=== PATIENT | female | born 1990 | race Caucasian/White ===

== ENCOUNTER → 2016-10-18 | Outpatient (CLI) | payer BC ==
[~2016-10-18] MED LIST: LVQ750 PO; NCDT21 TD; PRD20 PO
--- NOTE | 2016-10-18 09:35 | DIAGNOSTIC IMAGING REPORT ---
THORACIC SPINE 3 VIEWS CLINICAL HISTORY: Thoracic back pain. FINDINGS: AP, lateral, and swimmer's views of the thoracic spine are correlated with CT scan of the chest dated 01/22/2016. The skeletal structures are well mineralized. Vertebral body height and alignment are maintained throughout the thoracic spine. There is no radiographic evidence of fracture or malalignment. Intervertebral disc spaces are preserved. The transverse processes and pedicles are grossly intact as seen on the frontal view. The imaged lung parenchyma appears clear. IMPRESSION: Unremarkable radiographic assessment of the thoracic spine. Electronically signed by: Tej Vasquez M.D. 10/18/2016 9:34 AM Dictated Date/Time: 10/18/2016 9:33 AM
[2016-10-18 11:05] LABS: ESTIMATED AVERAGE GLUCOSE 103 mg/dl; HA1C FLAG Normal (Normal)
[2016-10-18 15:26] LABS: LYME DISEASE AB IGG NEG (NEG)
[2016-10-18 15:28] LABS: LYME DISEASE AB IGM NEG (NEG)
[2016-10-19 16:27] LABS: ALBUMIN 4.5 G/DL (3.8-4.8); COLLECTION SAMPLE Venous; GAMMA GLOBULIN 0.8 G/DL (0.8-1.7); IMMUNOFIXATION IGA SERUM 105 MG/DL (81-463); IMMUNOFIXATION IGG SERUM 790 MG/DL (694-1618); IMMUNOFIXATION IGM SERUM 108 MG/DL (48-271); LEAD BLOOD <1 mcg/dL (<5); TOTAL PROTEIN 7.1 G/DL (6.2-8.3)
== END | disposition home or self-care (01) ==
LOC: C.RAD1850 08:58
PROVIDERS: ATTEND Nurse Practitioner
DX: G60.9 Hereditary and idiopathic neuropathy, unspecified (principal); M54.9 Dorsalgia, unspecified

== ENCOUNTER 2019-05-30 20:58 | Inpatient (IN) ==
[2019-05-30] MEDS ORDERED: OXYTOCIN 30 UNITS/500 ML BAG IV PRN (21:11)
--- NOTE | 2019-05-30 21:14 | Labor Progress Brief Note ---
Date of Service May 30, 2019 Subjective Patient arrives with c/o contractions Q2-3min. No LOF, no VB, Good FM. Assessment & Plan (1) Normal labor and delivery: Admit, IV hydrate, patient hoping for epidural before delivery. Anticipate . Physical Exam Physical Exam: /-1 Bulging bag Vertex palpable FHT Cat 1 Nicut Q2-3 Results & Data Vital Signs (Past 12 Hours) Vital Signs Pulse BP 05/30/19 21:07 90 129/81 Coding Level of Care Code None Diagnoses Normal labor and delivery O80
[2019-05-30] MEDS: LACTATED RINGER'S 1,000 ML IV PRN (21:20)
[2019-05-30] MEDS ORDERED: ePHEDrine sulfate 50 MG/ML AMP ONE (21:30)
[2019-05-30] MEDS ORDERED: fentaNYL citrate 100 MCG/2 ML VIAL ONE (21:30)
[2019-05-30] MEDS ORDERED: NALOXONE HCL 1 MG in SODIUM CHLORIDE 0.9% 1000ML 1,000 ML IV PRN (21:31)
[2019-05-30] MEDS ORDERED: ONDANSETRON INJ 2 MG/ML 2 ML VIAL IV PRN (21:31)
[2019-05-30] MEDS ORDERED: DiphenhydrAMINE HCL 50 MG/ML VIAL IV PRN (21:31)
[2019-05-30] MEDS ORDERED: fentaNYL 2MCG/ML ROPIV 1.25MG/ML 100 ML BAG EPI PRN (21:31)
[2019-05-30] MEDS ORDERED: ePHEDrine sulfate 50 MG/ML AMP IV PRN (21:31)
[2019-05-30] MEDS ORDERED: NALBUPHINE HCL INJ 10 MG/ML AMP IV PRN (21:31)
[2019-05-30] MEDS ORDERED: BUPIVACAINE 0.25% 30 ML VIAL ONE (21:31)
[2019-05-30] MEDS ORDERED: NALOXONE HCL 0.4 MG/1 ML VIAL/CARP IV PRN (21:31)
[2019-05-30] MEDS ORDERED: fentaNYL 2MCG/ML ROPIV 1.25MG/ML 100 ML BAG EPI ONE (21:31)
[2019-05-30 21:34] LABS: Hematocrit (blood only) 39.2 % (37-47); Hemoglobin 13.9 g/dL (12.0-16.0); Mean Corpuscular Hemoglobin 33.3 pg (25-34); Mean Corpuscular Volume 93.8 fL (80-100); Mean Platelet Volume 12.4 fL (7.4-10.4); Platelet Count 151 K/uL (130-400); RDW Coefficient of Variation 13.9 % (11.5-14.5); RDW Standard Deviation 47.5 fL (36.4-46.3); Red Blood Count 4.18 M/uL (4.2-5.4); White Blood Count 18.48 K/uL (4.8-10.8)
--- NOTE | 2019-05-30 21:35 | Anesthesiology Consultation ---
Date of Service May 30, 2019 Assessment & Plan (1) Encounter for pre-operative examination: Chart Review Chart Review: Patient NOT seen in Pre Admission Testing and Acceptable Risk for Labor Epidural Consults Requested none History Height/Weight Height: 5 ft Weight: 66.224 kg Allergies Allergy/AdvReac Type Severity Reaction Status Date / Time No Known Drug Allergies Allergy Verified 05/29/19 11:27 Medications Home Medications Medication Instructions Recorded Confirmed Last Taken PNV cmb#95-ferrous fumarate-FA 1 tab PO DAILY 08/29/18 05/29/19 08/29/18 [] acetone (urine) test #50 04/19/19 05/29/19 Unknown blood sugar diagnostic #120 ea 04/19/19 05/29/19 Unknown blood-glucose meter #1 ea 04/19/19 05/29/19 Unknown lancets 33 gauge #120 04/19/19 05/29/19 Unknown pen needle, diabetic 32 gauge x #100 04/23/19 05/29/19 Unknown " insulin NPH isoph U-100 human 15 units SQ .qHS 05/30/19 05/30/19 05/29/19 22:00 [Humulin N NPH Insulin KwikPen] Active Medications Generic Name Dose Route Start Last Admin Trade Name Freq PRN Reason Stop Dose Admin Lactated Ringer's 1,000 mls @ 125 mls/hr 05/30/19 21:11 05/30/19 21:20 Lr IV 06/01/19 21:10 999 mls/hr .Q8H PRN Administration L&D Protocol Protocol Past Medical History Medical History History of asthma History of chlamydia History of genital warts History of labor History of spontaneous No pertinent past medical history with history of miscarriage (Inactive) Exercise / Class Metabolic Activity II 4-5 Yardwork/Stairs/Walk up hill Past Family History Family History Grandmother (Maternal) Dyslipidemia Hypertension Diabetes Mother Diabetes Anemia Past Surgical History Surgical History History of tonsillectomy and adenoidectomy S/P wisdom tooth extraction Past Anesthesia History No Hx of Anesthesia Complications and No Family Hx of Anesthesia Complications History of PONV No Hx of PONV and No Hx of Motion Sickness Social History Smoking Status: Current every day smoker tobacco type: cigarettes Smoking cigarettes per day: 20 Do You Dip or Chew Tobacco: No Hx Alcohol Use: No Hx Substance Use: No Physical Exam Vital Signs Last Vital Signs Temp 37 C 05/30/19 21:07 Pulse 84 05/30/19 21:47 Resp 20 05/30/19 21:07 BP 134/74 05/30/19 21:47 Pulse Ox 100 05/30/19 21:47 Testing Laboratory Results 05/30/19 21:24
[2019-05-30 21:59] LABS: Mean Corpuscular Hgb Conc 35.5 g/dL (32-36)
[2019-05-31] MEDS: LACTATED RINGER'S 1,000 ML IV PRN ×2 (01:09→07:24)
[2019-05-31] MEDS ORDERED: OXYTOCIN 30 UNITS/500 ML BAG IV PRN ×2 (07:12→09:10)
--- NOTE | 2019-05-31 07:12 | Labor Progress Brief Note ---
Date of Service May 31, 2019 Subjective Comfortable with epidural Assessment & Plan (1) Normal labor and delivery: AROM now completed as labor did not spontaneously progress overnight. Pitocin to be added as well, pt agreeable. (2) Insulin controlled gestational diabetes mellitus (GDM) during , antepartum: Glucose on admit 110, check this AM. Physical Exam Physical Exam: Bulging bag fills vagina. When touched, ruptures for copious clear fluid. Cervix afterwards is 9cm/100/0. FHT Cat 1, Ctx Q2min. Results & Data Vital Signs (Past 12 Hours) Vital Signs Temp Pulse Resp BP Pulse Ox 05/31/19 07:07 108 H 99 05/31/19 07:02 83 97 05/31/19 07:01 78 119/58 L 05/31/19 07:00 20 05/31/19 06:57 77 96 05/31/19 06:52 74 98 05/31/19 06:50 73 91 05/31/19 06:47 78 98 05/31/19 06:45 91 H 94 05/31/19 06:44 80 118/67 05/31/19 06:42 93 H 98 05/31/19 06:37 93 H 99 05/31/19 06:32 91 H 98 05/31/19 06:31 85 112/63 05/31/19 06:30 20 05/31/19 06:27 81 96 05/31/19 06:22 69 97 05/31/19 06:17 77 97 05/31/19 06:15 69 111/70 05/31/19 06:12 83 99 05/31/19 06:07 82 97 05/31/19 06:02 98.4 F 85 98 05/31/19 06:00 104 H 18 118/73 05/31/19 05:57 90 97 05/31/19 05:52 80 97 05/31/19 05:47 84 96 05/31/19 05:45 85 125/77 05/31/19 05:42 83 97 05/31/19 05:37 95 H 97 05/31/19 05:32 99 H 97 05/31/19 05:31 81 126/76 05/31/19 05:30 20 05/31/19 05:27 77 96 05/31/19 05:22 88 97 05/31/19 05:17 92 H 96 05/31/19 05:15 85 128/76 05/31/19 05:12 80 97 05/31/19 05:07 78 97 05/31/19 05:04 92 H 78 L 05/31/19 05:02 82 97 05/31/19 05:01 82 120/74 05/31/19 05:00 20 05/31/19 04:57 82 97 05/31/19 04:52 76 96 05/31/19 04:47 89 96 05/31/19 04:44 106 H 123/87 05/31/19 04:42 82 96 05/31/19 04:37 84 96 05/31/19 04:32 78 96 05/31/19 04:30 75 18 125/77 05/31/19 04:27 84 96 05/31/19 04:22 81 96 05/31/19 04:17 78 96 05/31/19 04:14 91 H 117/77 05/31/19 04:12 76 96 05/31/19 04:07 92 H 97 05/31/19 04:02 81 97 05/31/19 04:01 85 118/75 05/31/19 04:00 98.1 F 20 05/31/19 03:57 116 H 97 05/31/19 03:52 69 97 05/31/19 03:47 88 97 05/31/19 03:45 75 117/63 05/31/19 03:42 79 97 05/31/19 03:37 88 96 05/31/19 03:32 65 97 05/31/19 03:31 68 108/55 L 05/31/19 03:30 20 05/31/19 03:27 67 97 05/31/19 03:22 79 98 05/31/19 03:17 78 98 05/31/19 03:16 68 117/63 05/31/19 03:12 76 97 05/31/19 03:07 75 97 05/31/19 03:02 69 96 05/31/19 03:00 88 116/62 05/31/19 02:57 75 98 05/31/19 02:52 68 97 05/31/19 02:47 67 97 05/31/19 02:46 67 112/62 05/31/19 02:42 96 H 96 05/31/19 02:37 81 94 05/31/19 02:32 63 97 05/31/19 02:30 98.1 F 72 20 117/65 05/31/19 02:27 69 97 05/31/19 02:22 73 98 05/31/19 02:17 78 97 05/31/19 02:15 75 119/74 05/31/19 02:12 80 98 05/31/19 02:07 79 97 05/31/19 02:02 82 126/70 98 05/31/19 02:00 20 05/31/19 01:57 75 98 05/31/19 01:52 77 97 05/31/19 01:47 75 97 05/31/19 01:46 70 117/74 05/31/19 01:42 73 97 05/31/19 01:37 76 97 05/31/19 01:32 72 97 05/31/19 01:31 72 112/69 05/31/19 01:30 18 05/31/19 01:27 73 97 05/31/19 01:22 78 97 05/31/19 01:17 80 97 05/31/19 01:16 85 119/72 05/31/19 01:12 74 97 05/31/19 01:07 80 97 05/31/19 01:02 75 97 05/31/19 01:01 76 119/73 05/31/19 01:00 20 05/31/19 00:57 93 H 98 05/31/19 00:52 70 97 05/31/19 00:47 89 98 05/31/19 00:46 77 122/73 05/31/19 00:42 73 97 05/31/19 00:37 70 98 05/31/19 00:32 80 98 05/31/19 00:31 69 126/69 05/31/19 00:30 20 05/31/19 00:27 106 H 98 05/31/19 00:22 71 97 05/31/19 00:17 74 115/71 97 05/31/19 00:12 86 98 05/31/19 00:07 76 98 05/31/19 00:02 89 96 05/31/19 00:00 98.6 F 78 20 130/76 05/30/19 23:57 84 98 05/30/19 23:52 72 97 05/30/19 23:47 75 98 05/30/19 23:46 73 122/66 05/30/19 23:42 84 98 05/30/19 23:37 78 98 05/30/19 23:32 74 98 05/30/19 23:30 75 18 114/71 05/30/19 23:27 80 97 05/30/19 23:22 88 97 05/30/19 23:17 70 98 05/30/19 23:15 68 114/69 05/30/19 23:12 85 98 05/30/19 23:07 84 98 05/30/19 23:03 98.6 F 05/30/19 23:02 82 98 05/30/19 23:01 73 120/72 05/30/19 23:00 20 05/30/19 22:57 85 98 05/30/19 22:52 76 98 05/30/19 22:47 87 98 05/30/19 22:45 75 125/76 05/30/19 22:42 78 99 05/30/19 22:37 100 H 99 05/30/19 22:32 92 H 98 05/30/19 22:31 71 122/73 05/30/19 22:30 18 05/30/19 22:27 79 100 05/30/19 22:22 88 99 05/30/19 22:17 101 H 99 05/30/19 22:15 20 05/30/19 22:14 89 122/62 05/30/19 22:12 89 99 05/30/19 22:11 84 133/71 05/30/19 22:10 20 05/30/19 22:07 97 H 98 05/30/19 22:06 98 H 132/84 05/30/19 22:05 18 05/30/19 22:02 96 H 98 05/30/19 22:01 85 124/63 05/30/19 22:00 92 H 20 128/63 05/30/19 21:57 92 H 143/80 H 99 05/30/19 21:55 82 20 123/65 05/30/19 21:53 79 122/64 05/30/19 21:52 86 100 05/30/19 21:51 80 125/68 05/30/19 21:50 20 05/30/19 21:49 85 136/78 05/30/19 21:47 84 134/74 100 05/30/19 21:45 20 05/30/19 21:42 95 H 99 05/30/19 21:37 109 H 99 05/30/19 21:07 98.6 F 90 20 129/81 Coding Level of Care Code None Diagnoses Normal labor and delivery O80 Insulin controlled gestational diabetes mellitus (GDM) during , antepartum O24.414
--- NOTE | 2019-05-31 08:42 | Labor Progress Brief Note ---
Date of Service May 31, 2019 Subjective pt pushing Assessment & Plan (1) Supervision of normal intrauterine in multigravida: (2) Insulin controlled gestational diabetes mellitus (GDM) during , antepartum: will cont 2nd stage. fhts reassuring. couple aware I am assuming care. Physical Exam Constitutional: WD/WN, vitals as above Genitourinary: OB Exam Monitor Tracing: + external FHT monitor used (145 mod variability), + external uterine monitor used (q1-1.5 min), + category I and + normal FHT variability Results & Data Vital Signs (Past 12 Hours) Vital Signs Temp Pulse Resp BP Pulse Ox 05/31/19 08:32 124 H 99 05/31/19 08:30 131 H 133/69 05/31/19 08:27 125 H 99 05/31/19 08:22 116 H 97 05/31/19 08:17 108 H 97 05/31/19 08:15 117 H 134/88 05/31/19 08:12 112 H 98 05/31/19 08:07 100 H 98 05/31/19 08:02 91 H 97 05/31/19 08:01 82 138/83 05/31/19 07:57 90 98 05/31/19 07:52 84 97 05/31/19 07:47 92 H 98 05/31/19 07:45 104 H 135/78 05/31/19 07:42 97 H 95 05/31/19 07:37 88 97 05/31/19 07:32 86 98 05/31/19 07:31 82 132/82 05/31/19 07:27 87 98 05/31/19 07:22 89 98 05/31/19 07:17 85 97 05/31/19 07:15 71 134/68 05/31/19 07:12 76 99 05/31/19 07:07 108 H 99 05/31/19 07:02 83 97 05/31/19 07:01 98.4 F 78 21 119/58 L 05/31/19 07:00 20 05/31/19 06:57 77 96 05/31/19 06:52 74 98 05/31/19 06:50 73 91 05/31/19 06:47 78 98 05/31/19 06:45 91 H 94 05/31/19 06:44 80 118/67 05/31/19 06:42 93 H 98 05/31/19 06:37 93 H 99 05/31/19 06:32 91 H 98 05/31/19 06:31 85 112/63 05/31/19 06:30 20 05/31/19 06:27 81 96 05/31/19 06:22 69 97 05/31/19 06:17 77 97 05/31/19 06:15 69 111/70 05/31/19 06:12 83 99 05/31/19 06:07 82 97 05/31/19 06:02 98.4 F 85 98 05/31/19 06:00 104 H 18 118/73 05/31/19 05:57 90 97 05/31/19 05:52 80 97 05/31/19 05:47 84 96 05/31/19 05:45 85 125/77 05/31/19 05:42 83 97 05/31/19 05:37 95 H 97 05/31/19 05:32 99 H 97 05/31/19 05:31 81 126/76 05/31/19 05:30 20 05/31/19 05:27 77 96 05/31/19 05:22 88 97 05/31/19 05:17 92 H 96 05/31/19 05:15 85 128/76 05/31/19 05:12 80 97 05/31/19 05:07 78 97 05/31/19 05:04 92 H 78 L 05/31/19 05:02 82 97 05/31/19 05:01 82 120/74 05/31/19 05:00 20 05/31/19 04:57 82 97 05/31/19 04:52 76 96 05/31/19 04:47 89 96 05/31/19 04:44 106 H 123/87 05/31/19 04:42 82 96 05/31/19 04:37 84 96 05/31/19 04:32 78 96 05/31/19 04:30 75 18 125/77 05/31/19 04:27 84 96 05/31/19 04:22 81 96 05/31/19 04:17 78 96 05/31/19 04:14 91 H 117/77 05/31/19 04:12 76 96 05/31/19 04:07 92 H 97 05/31/19 04:02 81 97 02/06/20 04:01 85 118/75 05/31/19 04:00 98.1 F 20 05/31/19 03:57 116 H 97 05/31/19 03:52 69 97 05/31/19 03:47 88 97 05/31/19 03:45 75 117/63 05/31/19 03:42 79 97 05/31/19 03:37 88 96 05/31/19 03:32 65 97 05/31/19 03:31 68 108/55 L 05/31/19 03:30 20 05/31/19 03:27 67 97 05/31/19 03:22 79 98 05/31/19 03:17 78 98 05/31/19 03:16 68 117/63 05/31/19 03:12 76 97 05/31/19 03:07 75 97 05/31/19 03:02 69 96 05/31/19 03:01 20 05/31/19 03:00 88 116/62 05/31/19 02:57 75 98 05/31/19 02:52 68 97 05/31/19 02:47 67 97 05/31/19 02:46 67 112/62 05/31/19 02:42 96 H 96 05/31/19 02:37 81 94 05/31/19 02:32 63 97 05/31/19 02:30 98.1 F 72 20 117/65 05/31/19 02:27 69 97 05/31/19 02:22 73 98 05/31/19 02:17 78 97 05/31/19 02:15 75 119/74 05/31/19 02:12 80 98 05/31/19 02:07 79 97 05/31/19 02:02 82 126/70 98 05/31/19 02:00 20 05/31/19 01:57 75 98 05/31/19 01:52 77 97 05/31/19 01:47 75 97 05/31/19 01:46 70 117/74 05/31/19 01:42 73 97 05/31/19 01:37 76 97 05/31/19 01:32 72 97 05/31/19 01:31 72 112/69 05/31/19 01:30 18 05/31/19 01:27 73 97 05/31/19 01:22 78 97 02/06/20 01:17 80 97 05/31/19 01:16 85 119/72 05/31/19 01:12 74 97 05/31/19 01:07 80 97 05/31/19 01:02 75 97 05/31/19 01:01 76 119/73 05/31/19 01:00 20 05/31/19 00:57 93 H 98 05/31/19 00:52 70 97 05/31/19 00:47 89 98 05/31/19 00:46 77 122/73 05/31/19 00:42 73 97 05/31/19 00:37 70 98 05/31/19 00:32 80 98 05/31/19 00:31 69 126/69 05/31/19 00:30 20 05/31/19 00:27 106 H 98 05/31/19 00:22 71 97 05/31/19 00:17 74 115/71 97 05/31/19 00:12 86 98 05/31/19 00:07 76 98 05/31/19 00:02 89 96 05/31/19 00:00 98.6 F 78 20 130/76 05/30/19 23:57 84 98 05/30/19 23:52 72 97 05/30/19 23:47 75 98 05/30/19 23:46 73 122/66 05/30/19 23:42 84 98 05/30/19 23:37 78 98 05/30/19 23:32 74 98 05/30/19 23:30 75 18 114/71 05/30/19 23:27 80 97 05/30/19 23:22 88 97 05/30/19 23:17 70 98 05/30/19 23:15 68 114/69 05/30/19 23:12 85 98 05/30/19 23:07 84 98 05/30/19 23:03 98.6 F 05/30/19 23:02 82 98 05/30/19 23:01 73 120/72 05/30/19 23:00 20 05/30/19 22:57 85 98 05/30/19 22:52 76 98 05/30/19 22:47 87 98 05/30/19 22:45 75 125/76 05/30/19 22:42 78 99 05/30/19 22:37 100 H 99 05/30/19 22:32 92 H 98 05/30/19 22:31 71 122/73 05/30/19 22:30 18 05/30/19 22:27 79 100 05/30/19 22:22 88 99 05/30/19 22:17 101 H 99 05/30/19 22:15 20 05/30/19 22:14 89 122/62 05/30/19 22:12 89 99 05/30/19 22:11 84 133/71 05/30/19 22:10 20 05/30/19 22:07 97 H 98 05/30/19 22:06 98 H 132/84 05/30/19 22:05 18 05/30/19 22:02 96 H 98 05/30/19 22:01 85 124/63 05/30/19 22:00 92 H 20 128/63 05/30/19 21:57 92 H 143/80 H 99 05/30/19 21:55 82 20 123/65 05/30/19 21:53 79 122/64 05/30/19 21:52 86 100 05/30/19 21:51 80 125/68 05/30/19 21:50 20 05/30/19 21:49 85 136/78 05/30/19 21:47 84 134/74 100 05/30/19 21:45 20 05/30/19 21:42 95 H 99 05/30/19 21:37 109 H 99 05/30/19 21:07 98.6 F 90 20 129/81 Coding Level of Care Code None Diagnoses Supervision of normal intrauterine in multigravida Z34.80 Insulin controlled gestational diabetes mellitus (GDM) during , ante O24.414
[2019-05-31] MEDS ORDERED: ACETAMINOPHEN 325 MG TAB PO PRN (09:10)
[2019-05-31] MEDS ORDERED: OXYCODONE/ACETAMINOPHEN 5mg/325mg TAB PO PRN (09:10)
--- NOTE | 2019-05-31 09:12 | Anesthesia Procedure Note ---
Date of Service May 31, 2019 Anesthesia Post Epidural Note Vital Signs Vital Signs: Temp Pulse Resp BP Pulse Ox 98.4 F 96 H 21 131/60 97 05/31/19 07:01 05/31/19 09:00 05/31/19 07:01 05/31/19 09:00 05/31/19 08:47 Notes Mental Status: alert / awake / arousable and participated in evaluation Nausea / Vomiting: adequately controlled Pain: adequately controlled Airway Patency, RR, SpO2: stable & adequate BP & HR: stable & adequate Hydration State: stable & adequate Neuraxial Anesthesia: was administered and sensory block is resolving Anesthetic Complications: no major complications apparent and Pt Satisfied with anesthetic care Epidural: Removed without complications and With tip intact
--- NOTE | 2019-05-31 09:14 | Delivery Summary ---
Vaginal Delivery Summary Date of Service May 31, 2019 The patient dilated to complete and pushed to deliver a viable male infant s 8 and 9 via over intact perineum. Loose nuchal x 2 reduced. Mouth and nose bulb suctioned at perineum. Shoulders and body delivered with ease. was vigorous and crying at . Cord clamped at 30 seconds of life and infant to maternal abdomen where the cord was then doubly clamped and cut. Placenta delivered spontaneously and intact, three-vessel cord. Hemostasis achieved with dilute pitocin and uterine massage and drainage of the bladder for approximately 300 cc under sterile conditions. Laceration noted of right labia and not bleeding but reapproximated with 2 interrupted sutures of 4-0 vicryl. Cervix and sulci intact. EBL 300 cc. Mother and baby stable in recovery. [facility] Vaginal Delivery Charge Vaginal Delivery Codes: 28292 global code for the antepartum, delivery, and post-
[2019-05-31] MEDS ORDERED: DIPHTHERIA/TETANUS/PERTUSSIS 0.5 ML SYR/VIAL IM ONE (09:22)
[2019-05-31] MEDS ORDERED: BENZOCAINE 20% AER SPR 82.5 GM CAN EXT PRN (09:22)
[2019-05-31] MEDS ORDERED: OXYTOCIN 20 UNITS in LACTATED RINGER'S 1,000 ML IV SCH (09:22)
[2019-05-31] MEDS ORDERED: SUPERCREAM 0.870% 15 GM JAR EXT PRN (09:22)
[2019-05-31] MEDS ORDERED: HYDROCORTISONE ACETATE 25 MG SUPP PR PRN (09:22)
[2019-05-31] MEDS: IBUPROFEN 600 MG TAB PO PRN ×2 (10:48→15:56)
[2019-05-31] MEDS: DOCUSATE SODIUM 100 MG CAP PO SCH (20:09)
[2019-06-01] MEDS: IBUPROFEN 600 MG TAB PO PRN ×2 (01:02→07:35)
--- NOTE | 2019-06-01 06:54 | Obstetrical Progress Note ---
Date of Service June 01, 2019 Assessment & Plan (1) Normal labor and delivery: (2) Insulin controlled gestational diabetes mellitus (GDM) during , antepartum: stable, routine pp care. no complaints. desires d/c today. instructions reviewed. f/u 6 wk pp check. Day #:: 1 Subjective Ambulation: ambulating normally Voiding: no voiding problems Diet Tolerance:: regular diet Lochia:: Small Feeding Type:: breast feeding no pain issues, denies complaints. Physical Exam Constitutional WD/WN, vitals as above Respiratory normal respiratory effort, lungs clear to auscultation Cardiovascular Rate/Rhythm: regular rate and regular rhythm Gastrointestinal (Abdomen) Inspection/Auscultation: abdomen normal to inspection Percussion/Palpation: abdomen soft Fundus firm at U, has not voided yet Musculoskeletal nt calves no edema Neurologic grossly normal Psychiatric A+Ox3, euthymic affect Results & Data Vital Signs (Past 12 Hours) Vital Signs Temp Pulse Resp BP Pulse Ox 06/01/19 03:45 97.7 F 74 18 124/74 98 06/01/19 00:50 97.7 F 67 16 117/71 98 05/31/19 19:00 97.9 F 64 18 110/68 98
[2019-06-01] MEDS: DOCUSATE SODIUM 100 MG CAP PO SCH (07:36)
== END 2019-06-01 14:18 | disposition home or self-care (01) | DRG 807 ==
LOC: OPB 20:58 → 4S1 21:01 → 4S2 05-31 13:36